=== PATIENT | female | born 1960 | race Two or more races ===

== ENCOUNTER 2019-05-10 15:02 | Emergency (ER) | payer OTHER ==
[~2019-05-10] VITALS: Ht 157.5 cm; Wt 62.9 kg
[2019-05-10 15:05] VITALS: BP 128/81
--- NOTE | 2019-05-10 15:11 | NUR ---
ANKLE PAIN AND SWELLING X 1 MONTH. LEFT. PAIN WITH WALKING. PAINFUL TO PALPATION. NO PAIN WHEN SITTING STILL.
--- NOTE | 2019-05-10 16:07 | NUR ---
TECH AT BEDSIDE FOR SPLINTING
--- NOTE | 2019-05-10 16:42 | NUR ---
patient was offered crutches. patient refused
== END 2019-05-10 16:51 | disposition home or self-care (01) ==
LOC: ED 16:39
DX: S82.62XA Displaced fracture of lateral malleolus of left fibula, initial encounter for closed fracture (principal); S93.492A Sprain of other ligament of left ankle, initial encounter; X50.1XXA Overexertion from prolonged static or awkward postures, initial encounter; Y93.89 Activity, other specified; Y92.009 Unspecified place in unspecified non-institutional (private) residence as the place of occurrence of the external cause; Y99.8 Other external cause status
CPT/HCPCS: 29515; 99283